=== PATIENT | male | born 1965 | race Caucasian/White ===

== ENCOUNTER 2016-06-07 11:16 | Inpatient (IN) | payer OTHER ==
[2016-06-07] MEDS ORDERED: SODIUM CHLORIDE 0.9% 1,000 ML with MVI, ADULT NO.4 WITH VIT K 10 ML, THIAMINE 100 MG, F... IV ONE ×4 (12:26)
--- NOTE | 2016-06-07 12:31 | ED ---
General Adult HPI - General Chief complaint: Psychiatric Symptoms Stated complaint: Psych Eval Time Seen by Provider: 06/07/16 12:03 Source: patient, RN notes reviewed Mode of arrival: EMS Limitations: no limitations - History of Present Illness Initial comments: Chief complaint history of present illness is a 51-year-old male sent here from [facility]. The patient reports she drank vodka were at the time he is going in to the facility. While there he was having some hallucinations he was sent here. As that he's been through rehabilitation 6 times or more. His bandages stay alcohol free totally of 3 years 2 of which were in long-term and then follow one year of sobriety. Patient denies any suicidal or homicidal thoughts. - Related Data Home Medications Medication Instructions Recorded Confirmed Acetaminophen [Tylenol 8 Hour] 650 mg PO Q4H PRN MDD 6 TABS 06/07/16 06/07/16 Calcium 1000mg/Magnesium 500mg 1 tab PO TID PRN 06/07/16 06/07/16 Chlorpheniramine Maleate 4 mg PO Q4H PRN MDD 4 TABS 06/07/16 06/07/16 [Chlor-Trimeton] FLUoxetine HCL [PROzac] 40 mg PO DAILY 06/07/16 06/07/16 Gabapentin 600 mg PO Q6H 06/07/16 06/07/16 Ibuprofen [Motrin] 600 mg PO Q6HR PRN 06/07/16 06/07/16 LORazepam [Ativan] 1 mg PO DIRECTED 06/07/16 06/07/16 Metoprolol Tartrate [Lopressor] 50 mg PO BID@0630,1700 06/07/16 06/07/16 Multivitamins, Thera [Multivitamin] 1 tab PO DAILY 06/07/16 06/07/16 Ondansetron HCl [Zofran] 8 mg PO Q6H PRN 06/07/16 06/07/16 Thiamine [Vitamin B-1] 100 mg PO DAILY 06/07/16 06/07/16 busPIRone HCl [Buspar] 10 mg PO TID PRN 06/07/16 06/07/16 cloNIDine HCL [Catapres] 0.1 - 0.3 mg PO Q4H PRN 06/07/16 06/07/16 cloNIDine HCL [Catapres] 0.1 mg PO Q4H PRN 06/07/16 06/07/16 fluvoxaMINE MALEATE [Luvox] 100 mg PO DAILY 06/07/16 06/07/16 traZODone HCL 50 - 150 mg PO HS 06/07/16 06/07/16 Allergies Allergy/AdvReac Type Severity Reaction Status Date / Time No Known Allergies Allergy Unverified 06/07/16 11:49 Review of Systems ROS Statement: Those systems with pertinent positive or pertinent negative responses have been documented in the HPI. Review of systems. The patient is a bit diaphoretic at this time but not complaining of any headache chest pain shortness breath GI/ problems. Here the patient is not hallucinating. He did receive 2 mg of Ativan prior to coming to the hospital. Patient speaks freely about alcohol abuse prolonged period of time with 6 programs for rehabilitation. All systems were reviewed past medical problems significant for chronic alcohol abuse with vodka. Orthopedic surgeries include a right rotator cuff, left ACL repair. Family history noncontributory no known ALLERGIES. Ration does smoke and drinks alcohol to excess. ROS Other: All systems not noted in ROS Statement are negative. Past Medical History Additional Past Medical History / Comment(s): chronic etoh abuse History of Any Multi-Drug Resistant Organisms: None Reported Past Surgical History: Orthopedic Surgery Additional Past Surgical History / Comment(s): knee shoulder arm, vasectomy Past Psychological History: No Psychological Hx Reported Smoking Status: Current every day smoker Past Alcohol Use History: Abuse, Heavy Past Drug Use History: None Reported General Exam - General Exam Comments Initial Comments: General: The patient is awake , currently not hallucinating, diaphoretic and had to be awakened. But easily awakened. Denying any pain. States he actually feels pretty good. Patient's vital signs showed temperature 97.3 pulse 74 respiratory rate 18 pulse ox 95% room air blood pressure 169 over 1 await. Elevated systolic and diastolic both noted. After hydration and medications as a be repeated. Eye: Pupils are equal, round and reactive to light, extra-ocular movements are intact ; there is normal conjunctiva bilaterally. No signs of icterus. Ears, nose, mouth and throat: There are moist mucous membranes and no oral lesions. Neck: The neck is supple, there is no tenderness . Cardiovascular: There is a regular rate and rhythm. No murmur, rub or gallop is appreciated. Respiratory: Lungs are clear to auscultation, respirations are non-labored, breath sounds are equal. No wheezes, stridor, rales, or rhonchi. Gastrointestinal: Soft, non-distended, non-tender abdomen without masses or organomegaly noted. There is no rebound or guarding present. No CVA tenderness. Bowel sounds are unremarkable. Back: There is no tenderness to palpation in the midline. There is no obvious deformity. No rashes noted. Musculoskeletal: Normal ROM, no tenderness, There is no pedal edema. There is no calf tenderness or swelling. Sensation intact. Pulses equal bilaterally 2+. Neurological: CN II-XII intact, There are no obvious motor or sensory deficits. Coordination appears grossly intact. Speech is normal. Skin: Skin is warm and dry and no rashes or lesions are noted. Psychiatric: Cooperative, appropriate mood & affect, denies any thoughts of hurting himself. Limitations: no limitations Course Vital Signs 06/07/16 06/07/16 06/07/16 11:23 14:22 15:09 Temperature 97.3 F L Pulse Rate 74 68 68 Respiratory 18 18 16 Rate Blood Pressure 169/108 182/119 141/82 O2 Sat by Pulse 95 93 L 94 L Oximetry EKG Findings - EKG Comments: EKG Findings:: EKG was done and reviewed at 1441 showing normal sinus rhythm no acute ST elevation no ectopy. Rate 80. 48 QRS [address] QT [address] Copeland Medical Decision Making - Medical Decision Making The patient's labs show white count of 3.1 hemoglobin 12.9 hematocrit 38. No evidence of Tylenol aspirin or alcohol. Patient asked she states she was drinking vodka until he went into the facility. CT the brain was done and reviewed by radiologist entire report was reviewed. His final impression is normal CT brain is read by Dr. Villavicencio. The patient will be admitted for alcohol withdrawal syndrome. - Lab Data Result diagrams: 06/07/16 12:30 Lab Results 06/07/16 06/07/16 Range/Units 12:30 12:30 WBC 3.1 L (3.8-10.6) k/uL RBC 3.87 L (4.30-5.90) m/uL Hgb 12.9 L (13.0-17.5) gm/dL Hct 38.1 L (39.0-53.0) % MCV 98.5 (80.0-100.0) fL MCH 33.3 (25.0-35.0) pg MCHC 33.8 (31.0-37.0) g/dL RDW 14.4 (11.5-15.5) % Plt Count 74 L (150-450) k/uL Neutrophils % 65 % Lymphocytes % 23 % Monocytes % 7 % Eosinophils % 4 % Basophils % 1 % Neutrophils # 2.0 (1.3-7.7) k/uL Lymphocytes # 0.7 L (1.0-4.8) k/uL Monocytes # 0.2 (0-1.0) k/uL Eosinophils # 0.1 (0-0.7) k/uL Basophils # 0.0 (0-0.2) k/uL Salicylates <1.0 mg/dL Acetaminophen <10.0 ug/mL Serum Alcohol <10 mg/dL Disposition Clinical Impression: Alcohol withdrawal delirium Disposition: ADMITTED IP TO THIS HOSP Condition: Serious
[2016-06-07 12:45] LABS: Basophils % (A) 1 %; CH 34.4; CHCM 35.1; Eosinophils # (A) 0.1 k/uL (0-0.7); Eosinophils % (A) 4 %; HCT 38.1 % (39.0-53.0); HDW 2.73; HGB 12.9 gm/dL (13.0-17.5); Luc # (Auto) 0.03; Luc % (Auto) 1; Lymphocytes # (A) 0.7 k/uL (1.0-4.8); Lymphocytes % (A) 23 %; MCH 33.3 pg (25.0-35.0); MCHC 33.8 g/dL (31.0-37.0); MCV 98.5 fL (80.0-100.0); Mean Platelet Volume 9.1; Monocytes # (A) 0.2 k/uL (0-1.0); Monocytes % (A) 7 %; Neutrophils % (A) 65 %; RBC 3.87 m/uL (4.30-5.90); RDW 14.4 % (11.5-15.5); WBC 3.1 k/uL (3.8-10.6); WBC (Perox) 3.18
[2016-06-07 12:50] LABS: Acetaminophen <10.0 ug/mL; Alcohol <10 mg/dL; Salicylate <1.0 mg/dL
[2016-06-07] MEDS ORDERED: hydrALAZINE HCL 20 MG/ML 1 ML VIAL IVP STA (14:30)
--- NOTE | 2016-06-07 15:29 | CT ---
EXAMINATION TYPE: CT brain wo con DATE OF EXAM: 06/07/2016 3:22 PM COMPARISON: NONE HISTORY: Fatigue and weakness CT DLP: 1126.5 mGycm, Automated exposure control for dose reduction was used. CONTRAST: None CT of the brain is performed utilizing 3 mm thick sections through the posterior fossa and 3 mm thick sections through the remaining calvarium. Study is performed within 24 hours of arrival to the hosp ital. No abnormal hyperdensity is present to suggest an acute intracranial hemorrhage. No mass lesion is evident. No acute infarcts are evident. Ventricles and sulci are appropriate for the patient age. Paranasal sinuses and mastoid air cells within the [id number] are clear. IMPRESSIONS: 1. Normal CT Brain
[2016-06-07] MEDS ORDERED: ONDANSETRON 4 MG/2 ML VIAL IVP PRN (15:43)
[2016-06-07] MEDS ORDERED: NALOXONE 0.4 MG/ML 1 ML VIAL IV PRN (15:43)
[2016-06-07] MEDS ORDERED: busPIRone HCl 10 MG TAB PO PRN (15:49)
[2016-06-07] MEDS ORDERED: cloNIDine HCL 0.1 MG TAB PO PRN (15:49)
[2016-06-07] MEDS ORDERED: LORazepam 2 MG/ML SYRINGE IV PRN (15:53)
[2016-06-07 15:58] LABS: ALT 56 U/L (21-72); AST 62 U/L (17-59); Alkaline Phosphatase 62 U/L (38-126); Anion Gap 12 mmol/L; Blood Urea Nitrogen 17 mg/dL (9-20); Calcium 9.2 mg/dL (8.4-10.2); Carbon Dioxide 32 mmol/L (22-30); Chloride 96 mmol/L (98-107); Glucose 107 mg/dL (74-99); Non-African American GFR(MDRD) >60 (>60 ml/min/1.73 sqM); Potassium 3.8 mmol/L (3.5-5.1); Sodium 140 mmol/L (137-145); Total Bilirubin 1.3 mg/dL (0.2-1.3); Total Protein 6.8 g/dL (6.3-8.2)
[2016-06-07 16:55] VITALS: BMI 23.1
[2016-06-07] MEDS: LORazepam 2 MG/ML SYRINGE IV PRN ×2 (17:05→21:03)
[2016-06-07] MEDS: GABAPENTIN 300 MG CAP PO SCH ×2 (17:07→22:59)
[2016-06-07] MEDS: METOPROLOL TARTRATE 50 MG TAB PO SCH (17:08)
[2016-06-07] MEDS: traZODone HCL 50 MG TAB PO SCH (21:04)
[2016-06-08] MEDS: LORazepam 2 MG/ML SYRINGE IV PRN ×7 (00:35→22:25)
[2016-06-08] MEDS: NICOTINE 14MG/24HR PATCH TRANSDERM SCH ×2 (01:03→08:00)
[2016-06-08] MEDS: GABAPENTIN 300 MG CAP PO SCH ×4 (06:51→22:20)
[2016-06-08] MEDS: METOPROLOL TARTRATE 50 MG TAB PO SCH ×2 (06:51→15:46)
[2016-06-08] MEDS: FLUoxetine HCL 20 MG CAP PO SCH (08:00)
[2016-06-08] MEDS ORDERED: PANTOPRAZOLE 40 MG/10 ML VIAL IV SCH (09:00)
--- NOTE | 2016-06-08 09:46 | HP ---
DATE OF ADMISSION: CHIEF COMPLAINT: Hallucinations. HISTORY OF PRESENT ILLNESS: Mr. Ricci is a 51-year-old male with known history of alcohol abuse was sent from [facility]. Patient apparently drank vodka when he was going into the facility. While at the facility, he was having hallucinations and alcohol withdrawal symptoms. The patient was sent to ER for further evaluation. Patient currently was given Ativan and currently sedated, lying in the bed comfortably, could not provide any history at this time. Otherwise, as per the note, the patient denied any complaints of chest pain or shortness of breath. Denied any suicidal or homicidal thoughts. No recent illnesses or sick contacts. Complete review of systems could not be obtained from the patient. Past medical history includes alcohol abuse chronic and hypertension. PAST SURGICAL HISTORY: Orthopedic surgery including knee, shoulder, arm; vasectomy. SOCIAL HISTORY: Patient is currently an every day smoker. Patient does drink alcohol, patient is a heavy drinker. FAMILY HISTORY: Could not be obtained at this time. ALLERGIES: No known drug allergies. Home medication include: 1. Tylenol. 2. Calcium, magnesium. 3. Chlor-Trimeton. 4. Fluoxetine. 5. Gabapentin. 6. Ibuprofen. 7. Ativan. 8. Metoprolol. 9. Multivitamins. 10. Ondansetron. 11. Thiamine. 12. Buspirone. 13. Clonidine. 14. Fluvoxamine. 15. Trazodone. PHYSICAL EXAMINATION: A 51-year-old male lying in the bed, currently sleeping comfortably, could not be aroused at this time. VITALS: Blood pressure is 161/100, pulse is 84, respirations 20, temperature afebrile, pulse ox 95% on room air. HEENT: Atraumatic, normocephalic. Neck is supple. No JVD. CVS: S1, S2 heard. No murmurs, no gallop. LUNGS: Bilateral air entry is present. No wheeze, no crackles. ABDOMEN: Soft. Bowel sounds are present. CARD CLEANER: Patient currently is sedated. No focal neurologic deficit noted. EXTREMITIES: No edema. Pulses palpable bilaterally. No clubbing or cyanosis. PSYCHIATRIC: Could not be assessed completely. LABORATORY DATA: WBC 3.1, hemoglobin of 12.9, platelets 74. Sodium 140, potassium 3.8, chloride 96, bicarb is 32, BUN 17, creatinine 0.7. AST is 62, ALT is 56. Albumin 4.1. Serum alcohol level is less than 10. CT brain, normal CT brain. EKG normal sinus rhythm. IMPRESSION: 1. Hallucinations with acute alcohol withdrawal symptoms. 2. Chronic alcohol abuse. 3. Thrombocytopenia, secondary to alcohol abuse. 4. Hypertension, uncontrolled. 5. Deep venous thrombosis prophylaxis. DISCUSSION AND PLAN: A 51-year-old male with a known history of alcohol abuse admitted to the hospital with alcohol withdrawal symptoms. Will continue the Ativan as per CIWA scale and continue with IV fluids. Continue with thiamine and folic acid. Follow up closely. Fall precautions and seizure precautions and DVT prophylaxis. Further recommendations based on the clinical course. Continue with the home medications.
[2016-06-08] MEDS: SODIUM CHLORIDE 0.9% 1,000 ML IV SCH ×2 (15:45→22:20)
[2016-06-08] MEDS: traZODone HCL 50 MG TAB PO SCH (22:20)
[2016-06-09] MEDS: LORazepam 2 MG/ML SYRINGE IV PRN ×11 (01:16→22:05)
[2016-06-09] MEDS: GABAPENTIN 300 MG CAP PO SCH ×3 (06:23→17:05)
[2016-06-09] MEDS: METOPROLOL TARTRATE 50 MG TAB PO SCH ×2 (06:23→17:05)
[2016-06-09 07:03] LABS: Basophils % (A) 0 %; CH 34.4; CHCM 34.4; Eosinophils # (A) 0.1 k/uL (0-0.7); Eosinophils % (A) 3 %; HCT 37.4 % (39.0-53.0); HDW 2.67; HGB 12.5 gm/dL (13.0-17.5); Luc # (Auto) 0.12; Luc % (Auto) 3; Lymphocytes # (A) 0.5 k/uL (1.0-4.8); Lymphocytes % (A) 13 %; MCH 33.6 pg (25.0-35.0); MCHC 33.5 g/dL (31.0-37.0); MCV 100.2 fL (80.0-100.0); Macrocytosis Slight; Mean Platelet Volume 7.5; Monocytes # (A) 0.3 k/uL (0-1.0); Monocytes % (A) 8 %; Neutrophils # (A) 2.9 k/uL (1.3-7.7); Neutrophils % (A) 73 %; RBC 3.73 m/uL (4.30-5.90); RDW 14.5 % (11.5-15.5); WBC 3.9 k/uL (3.8-10.6); WBC (Perox) 4.08
[2016-06-09 07:20] LABS: Anion Gap 10 mmol/L; Blood Urea Nitrogen 16 mg/dL (9-20); Calcium 9.4 mg/dL (8.4-10.2); Carbon Dioxide 28 mmol/L (22-30); Chloride 100 mmol/L (98-107); Glucose 125 mg/dL (74-99); Non-African American GFR(MDRD) >60 (>60 ml/min/1.73 sqM); Potassium 4.3 mmol/L (3.5-5.1); Sodium 138 mmol/L (137-145)
[2016-06-09] MEDS: NICOTINE 14MG/24HR PATCH TRANSDERM SCH (09:01)
[2016-06-09] MEDS: FLUoxetine HCL 20 MG CAP PO SCH (09:01)
[2016-06-09] MEDS: PANTOPRAZOLE 40 MG TABLET PO SCH (09:02)
[2016-06-09] MEDS: SODIUM CHLORIDE 0.9% 1,000 ML IV SCH ×2 (09:02→20:26)
[2016-06-09] MEDS: THIAMINE 100 MG TAB PO SCH (11:12)
[2016-06-09] MEDS: MULTIVITAMINS, THERA 1 EACH TAB PO SCH (11:12)
--- NOTE | 2016-06-09 15:49 | P.CNPUL ---
History of Present Illness Consult date: 06/09/16 Requesting physician: Dk Mancera Reason for consult: other (Critical care management) Chief complaint: EtOH withdrawal History of present illness: This is a 51-year-old gentleman who was transferred here from [facility]. He had been drinking vodka daily prior to entering the facility. He began to have hallucinations and was sent here for further evaluation and treatment on 06/07/2016. This is significant alcoholism history and had managed to stay alcohol free for approximately 3 years, 2 of those years while while spent in retirement and then one year of sobriety following that. Unfortunately had returned to drinking quite significantly. He is treated for hypertension, anxiety/depression. He also has chronic and ongoing nicotine addiction. He was originally admitted to the selective care unit however his CIWAl score has been greater than 30 and he was since transferred into the intensive care unit. We are consulted for critical care management. Today he was quite anxious and restless. He was sweating profusely, tremorous. He initially was maintaining good O2 saturations in the mid 90s on room air. He is started dropping into the high 80s and is tolerating 2 L of nasal cannula now. Review of Systems 14 point review of system was conducted. All negative other than as mentioned in HPI. Past Medical History Additional Past Medical History / Comment(s): chronic etoh abuse History of Any Multi-Drug Resistant Organisms: None Reported Past Surgical History: Orthopedic Surgery Additional Past Surgical History / Comment(s): knee shoulder arm, vasectomy Past Psychological History: No Psychological Hx Reported Smoking Status: Former smoker Past Alcohol Use History: Abuse, Heavy Additional Past Alcohol Use History / Comment(s): One fifth a day Past Drug Use History: None Reported Medications and Allergies Home Medications Medication Instructions Recorded Confirmed Type Acetaminophen [Tylenol 8 Hour] 650 mg PO Q4H PRN MDD 6 TABS 06/07/16 06/07/16 History Calcium 1000mg/Magnesium 500mg 1 tab PO TID PRN 06/07/16 06/07/16 History Chlorpheniramine Maleate 4 mg PO Q4H PRN MDD 4 TABS 06/07/16 06/07/16 History [Chlor-Trimeton] FLUoxetine HCL [PROzac] 40 mg PO DAILY 06/07/16 06/07/16 History Gabapentin 600 mg PO Q6H 06/07/16 06/07/16 History Ibuprofen [Motrin] 600 mg PO Q6HR PRN 06/07/16 06/07/16 History LORazepam [Ativan] 1 mg PO DIRECTED 06/07/16 06/07/16 History Metoprolol Tartrate [Lopressor] 50 mg PO BID@0630,1700 06/07/16 06/07/16 History Multivitamins, Thera [Multivitamin] 1 tab PO DAILY 06/07/16 06/07/16 History Ondansetron HCl [Zofran] 8 mg PO Q6H PRN 06/07/16 06/07/16 History Thiamine [Vitamin B-1] 100 mg PO DAILY 06/07/16 06/07/16 History busPIRone HCl [Buspar] 10 mg PO TID PRN 06/07/16 06/07/16 History cloNIDine HCL [Catapres] 0.1 - 0.3 mg PO Q4H PRN 06/07/16 06/07/16 History cloNIDine HCL [Catapres] 0.1 mg PO Q4H PRN 06/07/16 06/07/16 History fluvoxaMINE MALEATE [Luvox] 100 mg PO DAILY 06/07/16 06/07/16 History traZODone HCL 50 - 150 mg PO HS 06/07/16 06/07/16 History Allergies Allergy/AdvReac Type Severity Reaction Status Date / Time No Known Allergies Allergy Unverified 06/07/16 11:49 Physical Exam Vitals: Vital Signs Temp Pulse Pulse Resp BP BP Pulse Ox 06/09/16 15:00 60 9 L 153/102 96 06/09/16 14:30 97.8 F 73 11 L 153/102 88 L 06/09/16 14:25 73 06/09/16 08:00 85 18 159/106 92 L 06/09/16 04:00 97.6 F 67 18 128/79 95 06/09/16 00:00 97.2 F L 72 18 167/110 95 06/08/16 20:00 97.8 F 65 18 175/110 91 L 06/08/16 16:00 97.6 F 69 18 169/113 97 Intake and Output 06/09/16 06/09/16 06/09/16 06:59 14:59 22:59 Intake Total 480 Output Total 0 Balance 480 0 Intake: Oral 480 Output: Urine 0 Other: # Voids 3 Weight 79.7 kg Results - Laboratory Findings CBC and BMP: 06/09/16 06:04 06/09/16 06:04 Abnormal lab findings: Abnormal Labs 06/08/16 06/09/16 06/09/16 01:10 06:04 06:04 RBC 3.73 L Hgb 12.5 L Hct 37.4 L MCV 100.2 H Plt Count 90 L Lymphocytes # 0.5 L Glucose 125 H Urine Methadone Screen Detected H U Benzodiazepines Scrn Detected H Assessment and Plan Plan: Impression: #1 Acute delirium tremens secondary to alcohol withdrawal. #2 Severe alcoholism, was starting inpatient rehabilitation but began hallucinating. #3 Chronic and ongoing tobacco dependence. #4 Hypertension. #5 History of anxiety/depression. #6 Previous history of incarceration 2 years. Plan: The patient was seen and evaluated by Dr. Melo. If the patient continues to deteriorate he may require intubation and mechanical ventilatory support with sedation to get him through the delirium tremens. We'll monitor him here closely in the intensive care unit. We'll continue with the CIWA protocol for now. He was educated regarding the importance of complete alcohol cessation and the plan is to return back to [place] once medically cleared. He is also educated regarding the importance of complete smoking cessation. A NicoDerm patch has been applied. We'll continue to follow make further recommendations based on his clinical status.
[2016-06-09] MEDS ORDERED: METOPROLOL TARTRATE 5 MG/5 ML VIAL IVP PRN (16:01)
--- NOTE | 2016-06-09 16:12 | PN ---
DATE OF SERVICE: 06/08/2016 INTERVAL HISTORY: Mr. Ricci is a 51-year-old male with known history of chronic alcohol abuse who was admitted to the hospital with alcohol withdrawal symptoms and shakiness and hallucinations while at the [facility]. Patient otherwise still having shakiness and requiring IV Ativan. Patient says that he is unable to tolerate any p.o. diet now and still having abdominal discomfort and nausea. Otherwise, denied any fever, chills. No chest pain or short of breath. No acute overnight issues. REVIEW OF SYSTEMS: CONSTITUTIONAL: No fever. No chills. RESPIRATORY: No cough or sputum production. CARDIOVASCULAR: No chest pain or short of breath. ABDOMEN: Patient does have nausea and abdominal pain in epigastric region. No diarrhea. No constipation. GENITOURINARY: No dysuria, no hematuria. ENDOCRINE: Negative. PSYCHIATRIC: Negative. SKIN: Negative. All other fourteen point review of systems negative except as above. Current medications include: BuSpar, Clonidine, Prozac, Luvox, Neurontin, Ativan, Lopressor, Theragran, Narcan, Habitrol, Zofran, Protonix, thiamine and trazodone. PHYSICAL EXAMINATION: A 51-year-old male lying in the bed. Awake, alert, oriented x3, appears as ANAHI distress. VITALS: Blood pressure is 141/91, pulse is 74, respiratory rate 16, temperature afebrile, pulse ox 97% on room air. HEENT: Atraumatic, normocephalic. Neck is supple. No JVD. CVS: S1, S2 heard. No murmurs, no gallop, no rub. LUNGS: Bilateral air entry is present. No wheezing, no crackles. ABDOMEN: Soft, epigastric tenderness. No guarding or rigidity. Bowel sounds are present. WRECKING MECHANIC: Awake, alert, oriented x3. No focal deficit. Cranial nerves grossly intact. EXTREMITIES: No edema. Pulses are palpable bilaterally. No clubbing or cyanosis. PSYCHIATRIC: Cooperative, anxious. LABORATORY DATA: UDS showed methadone and benzodiazepines. IMPRESSION: 1. Acute alcohol withdrawal symptoms with hallucinations and tremors. Patient still having symptoms. Will monitor for delirium tremens. 2. Chronic alcohol abuse. 3. Thrombocytopenia secondary to alcohol abuse. 4. Hypertension, controlled now. 5. Deep venous thrombosis prophylaxis. DISCUSSION AND PLAN: A 51-year-old male admitted to the hospital with acute alcohol withdrawal symptoms and hallucinations. Will continue the CIWA scale. Continue with the thiamine, folic acid and multivitamins and IV fluids and monitor closely. Monitor for DTs. Further recommendations based on the clinical course.
[2016-06-09] MEDS ORDERED: cloNIDine HCL 0.1 MG TAB PO SCH (17:00)
[2016-06-09] MEDS: hydrALAZINE HCL 20 MG/ML 1 ML VIAL IVP PRN (17:58)
[2016-06-09] MEDS ORDERED: cloNIDine 0.2 MG/24HR PATCH 1 PATCH PATCH TRANSDERM SCH (18:00)
[2016-06-09] MEDS: traZODone HCL 50 MG TAB PO SCH (20:27)
[2016-06-10] MEDS: LORazepam 2 MG/ML SYRINGE IV PRN ×6 (03:24→20:37)
[2016-06-10] MEDS: GABAPENTIN 300 MG CAP PO SCH ×4 (03:47→17:02)
[2016-06-10] MEDS: SODIUM CHLORIDE 0.9% 1,000 ML IV SCH ×2 (07:45→14:39)
[2016-06-10] MEDS: hydrALAZINE HCL 20 MG/ML 1 ML VIAL IVP PRN (07:45)
[2016-06-10] MEDS: METOPROLOL TARTRATE 50 MG TAB PO SCH ×2 (07:46→17:02)
[2016-06-10] MEDS: FLUoxetine HCL 20 MG CAP PO SCH (08:12)
[2016-06-10] MEDS: NICOTINE 14MG/24HR PATCH TRANSDERM SCH (08:12)
[2016-06-10] MEDS: PANTOPRAZOLE 40 MG TABLET PO SCH (08:12)
[2016-06-10] MEDS: amLODIPine 5 MG TAB PO SCH (09:09)
[2016-06-10 09:40] LABS: Basophils % (A) 0 %; CH 34.5; CHCM 34.7; Eosinophils % (A) 1 %; HDW 2.73; HGB 12.8 gm/dL (13.0-17.5); Luc % (Auto) 2; Lymphocytes # (A) 0.4 k/uL (1.0-4.8); Lymphocytes % (A) 7 %; MCH 34.7 pg (25.0-35.0); MCHC 34.7 g/dL (31.0-37.0); MCV 99.9 fL (80.0-100.0); Mean Platelet Volume 7.1; Monocytes # (A) 0.3 k/uL (0-1.0); Monocytes % (A) 5 %; Neutrophils # (A) 4.9 k/uL (1.3-7.7); Neutrophils % (A) 85 %; RDW 14.4 % (11.5-15.5); WBC 5.7 k/uL (3.8-10.6); WBC (Perox) 6.04
[2016-06-10 09:51] LABS: Anion Gap 11 mmol/L; Blood Urea Nitrogen 18 mg/dL (9-20); Calcium 8.3 mg/dL (8.4-10.2); Carbon Dioxide 28 mmol/L (22-30); Chloride 102 mmol/L (98-107); Glucose 120 mg/dL (74-99); Magnesium 1.1 mg/dL (1.6-2.3); Non-African American GFR(MDRD) >60 (>60 ml/min/1.73 sqM); Phosphorous 3.6 mg/dL (2.5-4.5); Potassium 3.9 mmol/L (3.5-5.1); Sodium 141 mmol/L (137-145)
[2016-06-10] MEDS ORDERED: Potassium Replacement Protocol 1 EACH MISC MISCELLANE PRN (10:44)
[2016-06-10] MEDS ORDERED: Magnesium Replacement Protocol 1 EACH MISC MISCELLANE PRN (10:44)
[2016-06-10] MEDS ORDERED: POTASSIUM CHLORIDE ER 20 MEQ TAB.ER PO SCH (11:00)
[2016-06-10] MEDS: MAGNESIUM SULFATE-D5W PMX 1 GM in DEXTROSE/WATER 1 100ML.BAG IVPB SCH ×3 (11:31→14:38)
[2016-06-10] MEDS: MULTIVITAMINS, THERA 1 EACH TAB PO SCH (11:32)
[2016-06-10] MEDS: THIAMINE 100 MG TAB PO SCH (11:32)
[2016-06-10] MEDS: ACETAMINOPHEN TAB 325 MG TAB PO PRN ×2 (12:41→20:35)
[2016-06-10] MEDS: cloNIDine HCL 0.1 MG TAB PO PRN ×2 (12:43→18:19)
--- NOTE | 2016-06-10 13:42 | P.PN ---
Subjective Principal diagnosis: Acute alcohol withdrawal This is a 51-year-old gentleman who was transferred here from [facility]. He had been drinking vodka daily prior to entering the facility. He began to have hallucinations and was sent here for further evaluation and treatment on 06/07/2016. This is significant alcoholism history and had managed to stay alcohol free for approximately 3 years, 2 of those years while while spent in [place] and then one year of sobriety following that. Unfortunately had returned to drinking quite significantly. He is treated for hypertension, anxiety/depression. He also has chronic and ongoing nicotine addiction. He was originally admitted to the selective care unit however his CIWAl score has been greater than 30 and he was since transferred into the intensive care unit. We are consulted for critical care management. Today he was quite anxious and restless. He was sweating profusely, tremorous. He initially was maintaining good O2 saturations in the mid 90s on room air. He is started dropping into the high 80s and is tolerating 2 L of nasal cannula now. Reevaluated on 06/10/2015, patient seems to be quite sedated and we are following the call withdrawal protocol. He does not seem to be in any form of distress. According to the nurses taking care of him, he was admitted for appropriate early this morning. To his presentation initially in the ICU. His labs were reviewed, relatively normal CBC and normal basic metabolic profile noted. Objective - Vital Signs Vital signs: Vital Signs Temp 98.2 F 06/10/16 12:00 Pulse 101 H 06/10/16 13:00 Resp 19 06/10/16 13:00 BP 153/69 06/10/16 13:00 Pulse Ox 95 06/10/16 13:00 Intake & Output 06/09/16 06/10/16 06/10/16 18:59 06:59 18:59 Intake Total 300 1200 900 Output Total 0 1650 300 Balance 300 -450 600 Weight 80 kg Intake: Intake, IV Titration 300 1200 900 Amount Magnesium Sulfate-D5w Pmx 200 1 gm In Dextrose/Water 1 100ml.bag @ 100 mls/hr IVPB Q1H NABILA Rx#: [id number] Sodium Chloride 0.9% 1, 300 1200 700 000 ml @ 100 mls/hr IV . Q10H NABILA Rx#:[id number] Output: Urine 0 1650 300 Other: Voiding Method Urinal Urinal Urinal # Voids 1 - Exam Physical Exam: Revealed a 51-year-old sedated, in no distress. HEENT:[Neck is supple.] [No neck masses.] [No thyromegaly.] [No JVD.] Chest: [Clear throughout, no crackles, no rhonchi, no wheezes.] Cardiac Exam: [Normal S1 and S2, no S3 gallop, no murmur.] Abdomen: [Soft, nontender, no megaly, no rebound, no guarding, normal bowel sounds.] Extremities: [No clubbing, no edema, no cyanosis.] Neurological Exam: Cannot be assessed, patient is sedated, presently on I'll call withdrawal protocol. - Labs CBC & Chem 7: 06/10/16 09:03 06/10/16 09:03 Labs: Abnormal Lab Results - Last 24 Hours (Table) 06/10/16 06/10/16 Range/Units 09:03 09:03 RBC 3.70 L (4.30-5.90) m/uL Hgb 12.8 L (13.0-17.5) gm/dL Hct 37.0 L (39.0-53.0) % Plt Count 86 L (150-450) k/uL Lymphocytes # 0.4 L (1.0-4.8) k/uL Creatinine 0.64 L (0.66-1.25) mg/dL Glucose 120 H (74-99) mg/dL Calcium 8.3 L (8.4-10.2) mg/dL Magnesium 1.1 L (1.6-2.3) mg/dL Assessment and Plan Plan: #1 Acute delirium tremens secondary to alcohol withdrawal. #2 Severe alcoholism, was starting inpatient rehabilitation but began hallucinating. #3 Chronic and ongoing tobacco dependence. #4 Hypertension. #5 History of anxiety/depression. #6 Previous history of incarceration 2 years. Recommendation: Continue present supportive care measures, continue alcohol withdrawal protocol, continue hydration, continue GI and DVT prophylaxis, patient will be monitored for one more day in the intensive care unit, and we' ll likely transfer out of the ICU in the next 24 hours. Time with Patient: Less than 30
[2016-06-10] MEDS: traZODone HCL 50 MG TAB PO SCH (20:37)
[2016-06-11] MEDS: GABAPENTIN 300 MG CAP PO SCH ×4 (00:07→16:58)
[2016-06-11] MEDS: SODIUM CHLORIDE 0.9% 1,000 ML IV SCH ×3 (00:08→22:29)
[2016-06-11] MEDS: LORazepam 2 MG/ML SYRINGE IV PRN ×9 (00:12→22:43)
[2016-06-11 05:29] LABS: Basophils % (A) 1 %; CH 34.6; CHCM 35.1; Eosinophils # (A) 0.2 k/uL (0-0.7); Eosinophils % (A) 4 %; HCT 37.6 % (39.0-53.0); HDW 2.89; HGB 12.9 gm/dL (13.0-17.5); Luc # (Auto) 0.09; Luc % (Auto) 2; Lymphocytes # (A) 0.7 k/uL (1.0-4.8); Lymphocytes % (A) 18 %; MCH 33.8 pg (25.0-35.0); MCHC 34.2 g/dL (31.0-37.0); MCV 98.9 fL (80.0-100.0); Mean Platelet Volume 7.9; Monocytes # (A) 0.4 k/uL (0-1.0); Monocytes % (A) 10 %; Neutrophils # (A) 2.5 k/uL (1.3-7.7); Neutrophils % (A) 66 %; RDW 14.4 % (11.5-15.5); WBC 3.8 k/uL (3.8-10.6); WBC (Perox) 3.79
[2016-06-11] MEDS: cloNIDine HCL 0.1 MG TAB PO PRN (05:58)
[2016-06-11 06:39] LABS: Anion Gap 6 mmol/L; Blood Urea Nitrogen 14 mg/dL (9-20); Calcium 8.5 mg/dL (8.4-10.2); Carbon Dioxide 28 mmol/L (22-30); Chloride 105 mmol/L (98-107); Glucose 96 mg/dL (74-99); Non-African American GFR(MDRD) >60 (>60 ml/min/1.73 sqM); Phosphorous 3.1 mg/dL (2.5-4.5); Potassium 4.4 mmol/L (3.5-5.1); Sodium 139 mmol/L (137-145)
[2016-06-11] MEDS: METOPROLOL TARTRATE 50 MG TAB PO SCH ×2 (07:03→16:58)
[2016-06-11] MEDS: amLODIPine 5 MG TAB PO SCH (07:59)
[2016-06-11] MEDS: NICOTINE 14MG/24HR PATCH TRANSDERM SCH (07:59)
[2016-06-11] MEDS: FLUoxetine HCL 20 MG CAP PO SCH (07:59)
[2016-06-11] MEDS: PANTOPRAZOLE 40 MG TABLET PO SCH (08:00)
[2016-06-11] MEDS: THIAMINE 100 MG TAB PO SCH (11:24)
[2016-06-11] MEDS: MULTIVITAMINS, THERA 1 EACH TAB PO SCH (11:24)
--- NOTE | 2016-06-11 15:05 | PN ---
DATE OF SERVICE: 06/09/2017 INTERVAL HISTORY: Mr. Ricci is a 51-year-old male with known history of chronic alcohol use who was admitted to hospital with alcohol withdrawal symptoms. Today the patient became more agitated and tachycardic and tachypneic along with tremors and agitation requiring higher doses of Ativan and developed DTs. The patient was transferred to MICU for close monitoring. Otherwise the patient does not have any overnight issues. No fever. No chills. No chest pain or short of breath. No nausea, vomiting, abdominal pain. Complete review of systems could not be obtained from the patient. Current medications include BuSpar, clonidine, Prozac, ( ), Neurontin, Ativan, Lopressor, Theragran, Narcan, Habitrol, Zofran, Protonix, thiamine and trazodone. PHYSICAL EXAMINATION: A 51-year-old male lying in bed, agitated and unable to follow commands. VITALS: Blood pressure is 167/110, pulse 72, respiration 18, temperature afebrile. Pulse ox saturating well on room air. HEENT: Atraumatic, normocephalic. Neck is supple. No JVD. CVS: S1, S2 heard. No murmurs, no gallop, no rub. LUNGS: Bilateral air entry is present. No wheezing, no crackles. ABDOMEN: Soft, nontender. Bowel sounds present. STATUE MAKER: Awake, alert, agitated and combative. PSYCHIATRIC: Patient not cooperative and agitated with hallucinations. LABORATORY DATA: WBC 3.9, hemoglobin 12.5, platelets 90, sodium 138, potassium 4.3, chloride 100, bicarb is 28. BUN 16, creatinine 0.9. IMPRESSION: 1. Acute delirium tremens. 2. History of severe alcohol abuse. 3. Thrombocytopenia secondary to alcohol abuse. 4. Hypertension. 5. Deep venous thrombosis prophylaxis. 6. Previous history of incarceration. DISCUSSION AND PLAN: A 51-year-old male admitted to the hospital with alcohol withdrawal symptoms and went into DTs today. Patient was transferred to MICU for close monitoring. I will continue the CIWA scale, continue with the telemonitoring and continue with thiamine and multivitamins and IV fluids and follow closely. Further recommendations based on clinical course.
--- NOTE | 2016-06-11 15:08 | P.PN ---
Subjective Principal diagnosis: Acute alcohol withdrawal This is a 51-year-old gentleman who was transferred here from [facility]. He had been drinking vodka daily prior to entering the facility. He began to have hallucinations and was sent here for further evaluation and treatment on 06/07/2016. This is significant alcoholism history and had managed to stay alcohol free for approximately 3 years, 2 of those years while while spent in nursing home and then one year of sobriety following that. Unfortunately had returned to drinking quite significantly. He is treated for hypertension, anxiety/depression. He also has chronic and ongoing nicotine addiction. He was originally admitted to the selective care unit however his CIWAl score has been greater than 30 and he was since transferred into the intensive care unit. We are consulted for critical care management. Today he was quite anxious and restless. He was sweating profusely, tremorous. He initially was maintaining good O2 saturations in the mid 90s on room air. He is started dropping into the high 80s and is tolerating 2 L of nasal cannula now. Reevaluated on 06/10/2016, patient seems to be quite sedated and we are following the call withdrawal protocol. He does not seem to be in any form of distress. According to the nurses taking care of him, he was admitted for appropriate early this morning. To his presentation initially in the ICU. His labs were reviewed, relatively normal CBC and normal basic metabolic profile noted. Patient was reevaluated today on 06/11/2016, he seems to be doing much better, and bit anxious, but no clear-cut significant alcohol withdrawal. 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 And does not seem to be restless or combative. His labs were reviewed and they seem to be all unremarkable. His platelets are a bit on the low side but that is his baseline most likely because of his alcoholism. Platelets today were 93,000. Objective - Vital Signs Vital signs: Vital Signs Temp 97.6 F 06/11/16 14:45 Pulse 89 06/11/16 14:45 Resp 20 06/11/16 14:45 BP 121/79 06/11/16 14:45 Pulse Ox 92 L 06/11/16 14:45 Intake & Output 06/10/16 06/11/16 06/11/16 18:59 06:59 18:59 Intake Total 2096 1200 400 Output Total 300 1950 Balance 1796 -750 400 Weight 81.3 kg Intake: Intake, IV Titration 1500 1200 400 Amount Magnesium Sulfate-D5w Pmx 300 100 1 gm In Dextrose/Water 1 100ml.bag @ 100 mls/hr IVPB Q1H NABILA Rx#: [id number] Sodium Chloride 0.9% 1, 1200 1200 300 000 ml @ 100 mls/hr IV . Q10H NABILA Rx#:[id number] Oral 596 Output: Urine 300 1950 Other: Voiding Method Urinal Urinal Urinal # Voids 1 1 - Exam Physical Exam: Revealed a 51-year-old sedated, in no distress. HEENT:[Neck is supple.] [No neck masses.] [No thyromegaly.] [No JVD.] Chest: [Clear throughout, no crackles, no rhonchi, no wheezes.] Cardiac Exam: [Normal S1 and S2, no S3 gallop, no murmur.] Abdomen: [Soft, nontender, no megaly, no rebound, no guarding, normal bowel sounds.] Extremities: [No clubbing, no edema, no cyanosis.] Neurological Exam: No focal neurologic deficit - Labs CBC & Chem 7: 06/11/16 05:13 06/11/16 05:13 Labs: Abnormal Lab Results - Last 24 Hours (Table) 06/11/16 Range/Units 05:13 RBC 3.80 L (4.30-5.90) m/uL Hgb 12.9 L (13.0-17.5) gm/dL Hct 37.6 L (39.0-53.0) % Plt Count 93 L (150-450) k/uL Lymphocytes # 0.7 L (1.0-4.8) k/uL Assessment and Plan Plan: #1 Acute delirium tremens secondary to alcohol withdrawal. #2 Severe alcoholism, was starting inpatient rehabilitation but began hallucinating. #3 Chronic and ongoing tobacco dependence. #4 Hypertension. #5 History of anxiety/depression. #6 Previous history of incarceration 2 years. Recommendation: Continue present supportive care measures, continue alcohol withdrawal protocol, continue hydration, continue GI and DVT prophylaxis, patient will be transferred out of the ICU and will monitor closely on a regular medical floor. Time with Patient: Less than 30
--- NOTE | 2016-06-11 15:39 | PN ---
DATE OF SERVICE: 06/10/2016 INTERVAL HISTORY: Mr. Kalia Ricci is a 51-year-old male admitted to the hospital with alcohol withdrawal symptoms and with history of alcohol abuse and incarceration in the past. Patient went into DTs and was transferred to ICU. Currently patient is shaky this morning. No fever. No chills. Otherwise symptomatically much improved today. No fever. No chills. No acute overnight issues. REVIEW OF SYSTEMS: CONSTITUTIONAL: No fever, no chills. RESPIRATORY: No cough or sputum production. CARDIOVASCULAR: No chest pain or short of breath. ABDOMEN: No nausea, vomiting or abdominal pain. NEUROLOGICAL: Patient has tremors. No headache or dizziness or lightheadedness. No weakness. GENITOURINARY: Negative. ENDOCRINE: Negative. PSYCHIATRIC: Anxious. All other fourteen-point review of systems negative except as above. CURRENT MEDICATIONS: Reviewed. PHYSICAL EXAMINATION: This 51-year-old male lying in the bed, awake, alert and oriented x3. Appears to be in no apparent distress. VITALS: Blood pressure is 133/82, pulse is 61, respirations 12, temperature afebrile. Pulse ox 90% on room air. HEENT: Atraumatic, normocephalic. Neck is supple. No JVD. CVS: S1, S2 heard. No murmurs, no gallop, no rub. LUNGS: Bilateral air entry is present. No wheezing. No crackles. Nonlabored breathing. ABDOMEN: Soft, nontender. Bowel sounds present. VP PATIENT: Awake, alert, oriented x3. No focal neurological deficits. Cranial nerves are grossly intact. EXTREMITIES: No edema. Pulses palpable bilaterally. No clubbing or cyanosis. PSYCHIATRIC: Cooperative. Anxious. LABORATORY DATA: WBC 5.7, hemoglobin 12.8, platelets 86. Sodium 141, potassium 3.9, chloride 102, bicarb is 28. BUN 18, creatinine 0.64, magnesium 1.1. IMPRESSION: 1. Acute delirium tremors secondary to alcohol withdrawal. 2. Severe alcohol abuse, was about to start inpatient rehabilitation. 3. Thrombocytopenia. 4. Hypertension. 5. History of incarceration about 2 years back. 6. Hypomagnesemia. 7. Deep venous thrombosis prophylaxis. 8. History of anxiety and depression. DISCUSSION AND PLAN: A 51-year-old male admitted to hospital with alcohol withdrawal symptoms and delirium and went into delirium tremens. Currently being monitored in ICU. Patient is still shaking in the morning. Otherwise symptomatically much improved now. Will continue the current management and continue with IV fluids and anticipate transferred to general medical floor tomorrow. Will continue to follow. Further recommendations based on the clinical course.
[2016-06-11] MEDS: traZODone HCL 50 MG TAB PO SCH (21:26)
[2016-06-11 23:00] VITALS: PULSE 83; RESP 16
[2016-06-12] MEDS: GABAPENTIN 300 MG CAP PO SCH ×2 (00:11→07:20)
[2016-06-12] MEDS: NICOTINE 14MG/24HR PATCH TRANSDERM SCH (07:20)
[2016-06-12] MEDS: MULTIVITAMINS, THERA 1 EACH TAB PO SCH (07:20)
[2016-06-12] MEDS: FLUoxetine HCL 20 MG CAP PO SCH (07:20)
[2016-06-12] MEDS: PANTOPRAZOLE 40 MG TABLET PO SCH (07:20)
[2016-06-12] MEDS: amLODIPine 5 MG TAB PO SCH (07:21)
[2016-06-12] MEDS: METOPROLOL TARTRATE 50 MG TAB PO SCH (07:21)
[2016-06-12] MEDS: SODIUM CHLORIDE 0.9% 1,000 ML IV SCH (07:21)
[2016-06-12] MEDS: THIAMINE 100 MG TAB PO SCH (07:21)
[2016-06-12 08:12] VITALS: BP 168/99; TEMP 97
--- NOTE | 2016-06-12 12:47 | PN ---
DATE OF SERVICE: 06/11/2016 INTERVAL HISTORY: Mr. Ricci is a 51 -year-old male admitted to the hospital with alcohol intoxication and delirium tremens. The patient was transferred out of the Intensive Care Unit and currently patient still having shakiness this morning. Otherwise, is clinically much improved now. Tolerating p.o. diet. No acute overnight issues. REVIEW OF SYSTEMS: CONSTITUTIONAL: No fever. No chills. RESPIRATORY: No cough or sputum production. CARDIOVASCULAR: No chest pain or short of breath. ABDOMEN: No nausea, vomiting or abdominal pain. GENITOURINARY: Negative. ENDOCRINE: Negative. PSYCHIATRY: Negative. SKIN: Negative. All other 14 point review of systems negative except as above. Current Medications are reviewed. PHYSICAL EXAMINATION: A 51 year-old male lying in bed comfortably, awake, alert, oriented, x3, appears to be in no apparent distress. VITALS: Blood pressure 149/94, pulse is 83, respirations 16, temperature afebrile, pulse ox 92% on room air. HEENT: Atraumatic, normocephalic. NECK: Supple. No jugular venous distention. CARDIOVASCULAR: S1, S2 heard. No murmur, no gallop and no rub. LUNGS: Bilateral air entry is present. No wheezing. No crackles. ABDOMEN: Soft, nontender. Bowel sounds are present. 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 No focal deficits. Cranial nerves are grossly intact. Patient does have ( ). EXTREMITIES: No edema. Pulses palpable bilaterally. No clubbing or cyanosis. PSYCHIATRY: Nonsuicidal. SKIN: No rash or skin lesions. LABORATORY DATA: WBC 3.8, hemoglobin 12.9, platelets 93, sodium 139, potassium 4.4, chloride is 105, bicarb is 28. BUN 14, creatinine 0.7. IMPRESSION: 1. Acute delirium tremens, improved now. Secondary to alcohol withdrawal symptoms. 2. Severe alcohol abuse, was about to start inpatient rehabilitation. 3. Thrombocytopenia improved. 4. ETOH abuse. 5. Hypertension. 6. History of incarceration about two years back. 7. Hypomagnesemia. 8. Deep venous thrombosis prophylaxis. 9. Anxiety and depression. DISCUSSION AND PLAN: 51 -year-old male admitted to the hospital with ( ) symptoms and had delirium tremens, was in the ICU. Currently the patient still having shakiness. We will continue ( ), continue IV fluids, continue the current management, encourage p.o. intake. Anticipate discharge in the next 24 hours with clinical improvement.
--- NOTE | 2016-06-28 10:49 | DS ---
DATE OF ADMISSION: 06/07/2016 DATE OF DISCHARGE: 06/12/2016 DISCHARGE DIAGNOSES: 1. Acute delirium tremens, improved now, secondary to alcohol withdrawals. 2. Severe alcohol abuse. The patient was about to start inpatient rehabilitation. 3. Thrombocytopenia. 4. Hypertension. 5. Hypomagnesemia. 6. History of incarceration about 2 years back. 7. Deep venous thrombosis prophylaxis. 8. Anxiety and depression. HOSPITAL COURSE: Mr. Ricci is a 51-year-old male with known history of alcohol abuse, was admitted to the hospital with acute alcohol intoxication and delirium tremens and alcohol withdrawal symptoms . Patient was about to start inpatient rehabilitation for alcohol abuse. The patient was found to be in acute alcohol withdrawal symptoms and was transferred to the hospital. The patient was monitored for alcohol withdrawal symptoms and went into delirium tremens. The patient was transferred to ICU where he was closely monitored. Currently, the delirium tremens have been resolved and patient is more awake and oriented today and does not require any IV and tolerating p.o. diet. Otherwise, the patient was replaced with magnesium as well due to hypomagnesemia. Patient is clinically stable to be discharged home and I recommended to follow with alcohol abuse rehabilitation as soon as possible ( ). Patient was counseled extensively for alcohol abuse and otherwise, patient is stable to be discharged home. DISCHARGE PHYSICAL EXAMINATION: The patient is a 51-year-old male, lying in bed comfortably. Awake, alert, oriented x3. He appears to be in no apparent distress. VITALS: Blood pressure is 168/99, pulse is 77, respirations 20, temperature afebrile, pulse ox saturating well on room air. HEENT: Atraumatic, normocephalic. Neck is supple. No JVD. CVS EXAM: S1, S2 heard. No murmurs, no gallop, no rub. LUNGS: Bilateral air entry is present. EXTREMITIES: No edema. Pulses palpable bilaterally. No clubbing or cyanosis. NEUROLOGIC: Awake, alert and oriented x3. No focal neurological deficit. LABORATORY DATA: WBC is 3.8, hemoglobin 12.9, platelets 93. Other laboratory data is within normal limits. Discharge physical examination done. Discharge medications include: 1. Tylenol 650 mg p.o. q.4 to 6 hours p.r.n. for pain. 2. Calcium/magnesium 1 tablet p.o. t.i.d. p.r.n. 3. Chlor-Trimeton 4 mg p.o. q.4 hourly p.r.n. for alcohol withdrawals. 4. Fluoxetine 40 mg p.o. daily. 5. Gabapentin 600 mg p.o. q.6 hourly. 6. Ativan 1 mg p.o. as directed. 7. Metoprolol 50 mg p.o. b.i.d. 8. Multivitamins 1 tablet p.o. daily. 9. Ondansetron 8 mg p.o. q.6 hourly p.r.n. for nausea, vomiting. 10. Thiamine 100 mg p.o. daily. 11. Buspirone 10 mg p.o. t.i.d. 12. Clonidine 0.1 mg p.o. q.4 hourly p.r.n. for withdrawal symptoms. 13. Fluvoxamine maleate 100 mg p.o. daily. 14. Trazodone 50 to 150 mg p.o. at bedtime. Patient will be discharged home in stable condition and follow with [facility]. Patient will be discharged in stable condition. Activity as tolerated and a heart healthy diet.
== END 2016-06-12 14:12 | DRG 897 ==
LOC: EC 11:16 → 6SEL 15:43 → 6ICU 06-09 14:15 → 5MS5E 06-11 10:56
PROVIDERS: ADMIT Hospitalist; ATTEND Hospitalist
DX: F10.231 Alcohol dependence with withdrawal delirium (principal); D69.59 Other secondary thrombocytopenia; E83.42 Hypomagnesemia; F17.200 Nicotine dependence, unspecified, uncomplicated; F32.9 Major depressive disorder, single episode, unspecified; F41.9 Anxiety disorder, unspecified; I10 Essential (primary) hypertension; Z79.899 Other long term (current) drug therapy
CPT/HCPCS: 36415; 70450; 80048; 80053; 80300; 80320; 82075; 83520; 83735; 84100; 84132; 85025; 93005; 96365; 96366; 96375; 99285